=== PATIENT | male | born 1950 | race Caucasian/White ===

== ENCOUNTER 2017-09-01 05:01 | Emergency (ER) | payer BC ==
[2017-09-01 05:15] VITALS: BP 112/62; PULSE 73; TEMP 98.6; BMI 25.8
--- NOTE | 2017-09-01 05:37 | PDOC ---
History of Present Illness - General Chief Complaint: Cold Symptoms Stated Complaint: I HAVE THE FLU Time Seen by Provider: 09/01/17 05:32 History Source: Patient Exam Limitations: No Limitations - History of Present Illness Initial Comments: 09/01/17 05:33 This is a 66-year-old male with extensive cardiac history who comes in complaining of I have the flu. Patient said he has had flulike illness symptoms 4 days now. Patient said that he has been taking Tylenol for the body aches and fevers persisted since he stopped Tylenol body aches come back. Patient otherwise denied history of nausea, vomiting, diarrhea, chest pain, shortness of breath, abdominal pain or any other complaints. PAST MEDICAL HISTORY: no significant history PAST SURGICAL HISTORY: no significant history FAMILY HISTORY: no pertinant history SOCIAL HISTORY: Pt lives with family and is employed. MEDICATIONS: reviewed ALLERGIES: As per nursing notes Review of Systems General: , no weakness, no weight loss , fevers and body aches as per history of present illness HEENT: No change in vision. No sore throat,. No ear pain CardioVascular: No chest pain or shortness of breath Respiratory:No cough, or wheezing. Gastrointestinal: no nausea, vomitting, diarrhea or constipation, No rectal bleeding Genitourinary: No dysuria, hematuria, or frequency Musculoskeletal: No joint or muscle pain or swelling Neurologic: No headache, vertigo, dizziness or loss of consciousness Psychiatric: nor depression Skin: No rashes or easy bruising Endocrine: no increased thirst or abnormal weight change Allergic: no skin or latex allergy All other systems reviewed and normal Exam: General: Well-nourished well-developed individual, no acute distress HEENT: Throat: Normal, tonsils normal, no erythema or exudate Neck: Supple, no meningeal signs, no lymphadenopathy Eyes::Pupils equal reactive and round, extraocular motion intact Chest: Nontender to palpation Cardiac: S1-S2 normal, regular rate and rhythm, no murmurs rubs or gallops Respiratory: Lungs clear to auscultation bilateral Abdomen: Soft, nondistended, normal bowel sounds, nontender to palpation diffusely Extremities: Warm, dry, no cyanosis, clubbing, or edema Skin: No rashes Neuro: Alert and oriented x3, CN II - XII intact, nonfocal exam with normal strength, normal sensation, normal reflexes, normal gait, Psych: Normal mood and affect Assessment and plan: This is a 6-year-old male with flulike symptoms who comes in for evaluation. Patient has a normal exam. Patient is otherwise well- appearing. Patient has normal vitals. Patient was reassured that if this is a viral illness that will run its course Several days. Patient discharged home and told to follow-up with his primary care doctor Past History - Past Medical History Allergies/Adverse Reactions: Allergies Allergy/AdvReac Type Severity Reaction Status Date / Time No Known Allergies Allergy Verified 12/13/14 10:14 Home Medications: Ambulatory Orders Aspirin [ASA -] 81 mg PO DAILY 12/13/14 Atenolol [Tenormin -] 25 mg PO DAILY 12/13/14 Clopidogrel Bisulfate [Plavix -] 75 mg PO DAILY 12/13/14 Multivitamins [Multivit ([facility])] 1 tab PO DAILY 12/13/14 Omeprazole [Prilosec] 20 mg PO DAILY 12/13/14 Rosuvastatin [Crestor -] 40 mg PO DAILY 12/13/14 Finasteride [Proscar -] 5 mg PO DAILY 09/01/17 Gabapentin 100 mg PO TID 09/01/17 Isosorbide Mononitrate [Imdur -] 60 mg PO DAILY 09/01/17 Tamsulosin HCl [Flomax] 0.4 mg PO DAILY 09/01/17 Cardiac Disorders: Yes COPD: No Disorders: Yes HTN: Yes Hypercholesterolemia: Yes - Surgical History Abdominal Surgery: Yes (HERNIA) Cardiac Surgery: Yes (STENTS X 4, TRIPLE BYPASS) - Suicide/Smoking/Psychosocial Hx Smoking History: Unknown if ever smoked Have you smoked in the past 12 months: No If you are a former smoker, when did you quit?: 1993 Information on smoking cessation initiated: No Hx Alcohol Use: No Substance Use Type: None Hx Substance Use Treatment: No *Physical Exam - Vital Signs Last Vital Signs Temp Pulse Resp BP Pulse Ox 98.6 F 73 16 112/62 97 09/01/17 05:13 09/01/17 05:13 09/01/17 05:13 09/01/17 05:13 09/01/17 05:13 *DC/Admit/Observation/Transfer Diagnosis at time of Disposition: Flu-like symptoms - Discharge Dispostion Disposition: HOME Condition at time of disposition: Stable Admit: No - Referrals Referrals: Abhay Goodwin [Primary Care Provider] - - Patient Instructions Additional Instructions: Continue the Tylenol U can also alternate the Tylenol with ibuprofen every 3-4 hours if needed. Return to the emergency department immediately with ANY new, persistent or worsening symptoms. Continue any medications as previously prescribed by your physician. You should follow up with your primary doctor as soon as possible regarding today's emergency department visit. . Please make sure your doctor reviews the results of your emergency evaluation. Thank you for coming to the Emergency Department today for your care. It was a pleasure to see you today. Please note that your evaluation is INCOMPLETE until you follow-up with your doctor. - Post Discharge Activity
== END 2017-09-01 05:39 | disposition home or self-care (01) ==
LOC: FER 05:01
DX: J11.1 Influenza due to unidentified influenza virus with other respiratory manifestations (principal); Z87.891 Personal history of nicotine dependence; Z95.5 Presence of coronary angioplasty implant and graft; I10 Essential (primary) hypertension; E78.00 Pure hypercholesterolemia, unspecified
CPT/HCPCS: 99281-25